=== PATIENT | female | born 1970 | race Caucasian/White ===

== ENCOUNTER → 2020-03-14 08:02 | Outpatient (CLI) | payer BC, SELFPAY ==
--- NOTE | 2020-03-14 | DI.CT.S_ITS ---
PROCEDURE: CT ABDOMEN PELVIS W CON INDICATIONS: Left lower quadrant abdominal pain TECHNIQUE: After the administration of oral and intravenous contrast, 5 mm thick sections acquired from the diaphragms to the symphysis. 5 mm thick coronal and sagittal reformats were performed. For radiation dose reduction, the following was used: automated exposure control, adjustment of mA and/or kV according to patient size. COMPARISON: None. FINDINGS: Image quality: Excellent. ABDOMEN: Lung bases: Lung bases are clear. Heart size is normal. Solid organs: Liver is normal in size and enhancement. Gallbladder appears normal. Biliary system is non-dilated. Pancreas enhances normally. Spleen is normal in size and enhancement. No adrenal nodules. Kidneys are normal in size and enhancement, without hydronephrosis. Peritoneum and bowel: Stomach, small bowel, and colon loops are normal in caliber and wall thickness. No free fluid or air. Nodes and vessels: No retroperitoneal or mesenteric adenopathy. Aorta and inferior vena cava are normal in caliber. Miscellaneous: No ventral hernias. PELVIS: Genitourinary: Bladder wall thickness is normal. Miscellaneous: No inguinal hernias or adenopathy. There is toms-py-ndaozgag diverticulosis at the left lower quadrant, but no sign of acute diverticulitis. Bones: No suspicious bony lesions. No vertebral body compression fractures. IMPRESSION: [id number] left lower quadrant diverticulosis, but no acute diverticulitis. Dictated by: Baltazar Jo M.D. on 03/14/2020 at 10:07 Approved by: Baltazar Jo M.D. on 03/14/2020 at 11:02
--- NOTE | 2020-03-14 | DI.US.S_ITS ---
PROCEDURE: US PELVIC COMPLETE INDICATIONS: Left lower quadrant abdominal pain TECHNIQUE: Real-time scanning was performed of the pelvic organs, with image documentation. Additional endovaginal scanning was necessary due to incomplete visualization of the adnexal and endometrial structures by transabdominal scanning. COMPARISON: [facility], CT, CT ABDOMEN PELVIS W CON, 03/14/2020, 9:44. FINDINGS: Transabdominal scanning: Limited scanning through the kidneys shows no hydronephrosis. No pathologic free abdominal or pelvic fluid. Endovaginal scanning: Uterus: Removed. Ovaries: Neither ovary is seen. There is a potential left adnexal mass seen by the technologist, although no measurements were obtained. On the accompanying CT examination, no adnexal masses are seen, yet only normal appearing bowel can be seen. IMPRESSION: No definite pelvic ultrasound abnormality is seen. Status post cholecystectomy and presumed bilateral oophorectomy, without ovarian tissue identified. Dictated by: Roberto Herrera M.D. on 03/15/2020 at 9:44 Approved by: Roberto Herrera M.D. on 03/15/2020 at 9:46
== END ==
PROVIDERS: PCP Nurse Practitioner Family; Referring Provider Nurse Practitioner Family; Visit Provider Nurse Practitioner Family
DX: K57.90 Diverticulosis of intestine, part unspecified, without perforation or abscess without bleeding (principal); Z90.49 Acquired absence of other specified parts of digestive tract
CPT/HCPCS: 74177; 76856; Q9967

== ENCOUNTER → 2020-05-25 11:03 | Outpatient (CLI) | payer BC, SELFPAY ==
--- NOTE | 2020-05-25 | DI.MG.S_ITS ---
BILATERAL DIGITAL SCREENING MAMMOGRAM 3D/2D WITH CAD: 05/25/2020 CLINICAL: Baseline exam. Routine screening. No prior exams were available for comparison. The tissue of both breasts is heterogeneously dense. This may lower the sensitivity of mammography. Current study was also evaluated with a Computer Aided Detection (CAD) system. There is a 1.8 cm oval equal density asymmetry with an obscured and circumscribed margin in the right breast middle depth superior region seen on the mediolateral oblique view only. There also is a 7 mm round low density asymmetry in the right breast posterior depth superior region seen on the mediolateral oblique view only. Finding is seen only on tomography. No other significant masses, calcifications, or other findings are seen in either breast. IMPRESSION: INCOMPLETE: NEEDS ADDITIONAL IMAGING EVALUATION The 1.8 cm oval equal density asymmetry in the right breast middle depth superior region seen on the mediolateral oblique view only is indeterminate. Additional views with possible ultrasound are recommended. The 7 mm round low density asymmetry in the right breast posterior depth superior region seen on the mediolateral oblique view only is indeterminate. Additional views with possible ultrasound are recommended. This exam was interpreted at Station ID: [id number]. NOTE: For mammograms, a report in lay terms will be sent to the patient. Approximately 15% of breast malignancies will not be visualized mammographically. In the management of a palpable breast mass, a negative mammogram must not discourage biopsy of a clinically suspicious lesion. Electronically Signed By: Shanae alonzo/ortiz:05/25/2020 11:44:54 copy to: Kayla Gillespie MD, ph: [phone], fax: [phone] letter sent: Additional Imaging Needed ACR BI-RADS Category 0: Incomplete 3340F
== END ==
PROVIDERS: PCP Nurse Practitioner Family; Referring Provider Nurse Practitioner Family; Visit Provider Nurse Practitioner Family
DX: Z12.31 Encounter for screening mammogram for malignant neoplasm of breast (principal)
CPT/HCPCS: 77063; 77067

== ENCOUNTER → 2020-06-15 12:50 | Outpatient (CLI) | payer BC, SELFPAY ==
--- NOTE | 2020-06-15 | DI.US.S_ITS ---
LIMITED ULTRASOUND OF RIGHT BREAST AND AXILLA: 06/15/2020 CLINICAL: Patient returns today to evaluate focal asymmetries in the right breast. Comparison is made to exams dated: 06/15/2020 mammogram and 05/25/2020 mammogram - [facility]. Color flow ultrasound of the right breast axilla was performed. Onofre scale images of the real-time examination were reviewed. There is a 1.7 cm x 1.4 cm x 1.2 cm oval mass with a circumscribed margin in the right breast at 11 o'clock middle depth 4 cm from the nipple. This oval mass is hypoechoic. This correlates with mammography findings. Color flow imaging demonstrates that there is no increase in vascularity. There also is a benign 0.8 cm x 0.7 cm x 0.6 cm oval simple cyst with a smooth internal wall in the right breast at 10 o'clock posterior depth 8 cm from the nipple. This oval simple cyst is anechoic with posterior acoustic enhancement. This correlates with mammography findings. Adjacent to this cyst, there is an additional smaller cyst. No significant abnormalities were seen sonographically in the right axilla. IMPRESSION: SUSPICIOUS OF MALIGNANCY The 1.7 cm x 1.4 cm x 1.2 cm oval mass in the right breast at 11 o'clock middle depth has a differential diagnosis of a fibroadenoma and is at a low suspicion for malignancy. An ultrasound guided biopsy is recommended. The findings and recommendations were discussed with the patient by telephone at the time of the exam. The 0.8 cm x 0.7 cm x 0.6 cm oval simple cyst in the right breast at 10 o'clock posterior depth is benign. This exam was interpreted at Station ID: [id number]. Electronically Signed By: Hector hayden/ortiz:06/15/2020 15:11:42 copy to: Kayla Gillespie MD, ph: [phone], fax: [phone] letter sent: Biopsy Required Ultrasound BI-RADS: 4a Low suspicion for malignancy
--- NOTE | 2020-06-15 | DI.MG.S_ITS ---
UNILATERAL RIGHT DIGITAL DIAGNOSTIC MAMMOGRAM 3D/2D WITH ADDITIONAL VIEWS: 06/15/2020 CLINICAL: Additional evaluation requested from prior study. Comparison is made to exam dated: 05/25/2020 [facility]. The tissue of right breast is heterogeneously dense. This may lower the sensitivity of mammography. There is a 1.8 cm oval equal density mass with an obscured and circumscribed margin in the right breast at 11 o'clock anterior depth. This is seen in additional views. There also is a 7 mm oval focal asymmetry with an obscured margin in the right breast at 10 o'clock posterior depth. No other significant masses or calcifications are seen in the breast. IMPRESSION: INCOMPLETE: NEEDS ADDITIONAL IMAGING EVALUATION The 1.8 cm oval equal density mass in the right breast at 11 o'clock anterior depth is indeterminate. An ultrasound is recommended. The 7 mm oval focal asymmetry in the right breast at 10 o'clock posterior depth is indeterminate. An ultrasound is recommended. This exam was interpreted at Station ID: [id number]. NOTE: For mammograms, a report in lay terms will be sent to the patient. Approximately 15% of breast malignancies will not be visualized mammographically. In the management of a palpable breast mass, a negative mammogram must not discourage biopsy of a clinically suspicious lesion. SUMMARY: Targeted ultrasound is recommended for further evaluation and will be scheduled immediately following this exam. Electronically Signed By: Hector hayden/ortiz:06/15/2020 15:08:16 copy to: Kayla Gillespie MD, ph: [phone], fax: [phone] ACR BI-RADS Category 0: Incomplete 3340F
== END ==
PROVIDERS: PCP Nurse Practitioner Family; Referring Provider Nurse Practitioner Family; Visit Provider Nurse Practitioner Family
DX: R92.8 Other abnormal and inconclusive findings on diagnostic imaging of breast (principal); N63.11 Unspecified lump in the right breast, upper outer quadrant; N60.01 Solitary cyst of right breast
CPT/HCPCS: 76642; 77065; G0279

== ENCOUNTER → 2020-06-30 09:42 | Outpatient (CLI) | payer BC, SELFPAY ==
--- NOTE | 2020-06-30 | DI.MG.S_ITS ---
UNILATERAL RIGHT DIGITAL DIAGNOSTIC MAMMOGRAM POST-NEEDLE BIOPSY: 06/30/2020 CLINICAL: Abnormal mammogram. Comparison is made to exams dated: 06/15/2020 mammogram and 05/25/2020 mammogram - [facility]. The tissue of right breast is heterogeneously dense. This may lower the sensitivity of mammography. There is a mass in the right breast seen on the craniocaudal view only. There also is a marker clip in the appropriate position in the right breast at 11 o'clock anterior depth. This marker clip placement is at the biopsy site. This correlates with ultrasound findings. No other significant masses or calcifications are seen in the breast. IMPRESSION: INCOMPLETE: NEEDS ADDITIONAL IMAGING EVALUATION There was a successful marker clip placement in the right breast at 11 o'clock anterior depth. This exam was interpreted at Station ID: [id number]. NOTE: For mammograms, a report in lay terms will be sent to the patient. Approximately 15% of breast malignancies will not be visualized mammographically. In the management of a palpable breast mass, a negative mammogram must not discourage biopsy of a clinically suspicious lesion. Electronically Signed By: Kermit Schwartz acr/:06/30/2020 11:16:03 copy to: Kayla Gillespie MD, ph: [phone], fax: [phone] ACR BI-RADS Category 0: Incomplete 3340F
--- NOTE | 2020-06-30 | DI.US.S_ITS ---
PROCEDURE: US BX BREAST PERC W VAC DEVICE COMPARISON: None. INDICATIONS: Other abnormal and inconclusive findings on diagnostic imagi FINDINGS: IMPRESSION: Dictated by: Kermit Schwartz M.D. on 06/30/2020 at 12:05 Approved by: Kermit Schwartz M.D. on 06/30/2020 at 12:07
--- NOTE | 2020-06-30 11:58 | DI.US.S_ITS ---
Date: 06/30/2020 11:58 At the request of: ESME SHEIKH Procedure: US bx breast perc w vac device ULTRASOUND GUIDED BIOPSY RIGHT BREAST USING VACUUM DEVICE WITH MARKING DEVICE INSERTED AND POST MAMMOGRAPHIC IMAGIN06/30/2020 CLINICAL: Post right breast ultrasound biopsy, clip placement imaging. PATIENT CONSENT: Risks (minor bleeding, infection, vasovagal reaction and repeat procedure), benefits and alternatives were explained to the patient and written informed consent was obtained. No prior exams were available for correlation. An ultrasound guided biopsy using real-time ultrasound was performed for the irregular shaped solid mass located in the right breast at 11 o'clock posterior depth. The skin was prepped in the usual manner. The abnormality was approached from the lateral aspect. A 9 gauge biopsy needle was placed adjacent to the abnormality under ultrasound guidance. Once the needle was documented to be in the correct location, six specimens were obtained using the Mammotome biopsy system. A clip was inserted into the biopsy cavity. Post procedure mammographic imaging was obtained. The specimens were sent to the laboratory for pathological analysis. IMPRESSION: ULTRASOUND GUIDED BIOPSY BENIGN Ultrasound guided biopsy of the solid mass in the right breast at 11 o'clock posterior depth was successful. 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 Pathology results are concordant with imaging findings. Return to annual mammogram screening schedule is recommended. This exam was interpreted at Station ID: [id number]. Kermit Hanna M.D. acr,aty/:07/07/2020 07:21:07 copy to: Kayla Gillespie MD, ph: [phone], fax: [phone]
== END ==
PROVIDERS: PCP Nurse Practitioner Family; Referring Provider Nurse Practitioner Family; Visit Provider Nurse Practitioner Family
DX: D24.1 Benign neoplasm of right breast (principal)
CPT/HCPCS: 19083; 77065

== ENCOUNTER → 2021-07-03 10:48 | Outpatient (CLI) | payer BC, SELFPAY ==
--- NOTE | 2021-07-03 | DI.MG.S_ITS ---
BILATERAL DIGITAL SCREENING MAMMOGRAM 3D/2D WITH CAD: 07/03/2021 CLINICAL: Routine screening. Comparison is made to exams dated: 06/30/2020 ultrasound biopsy, 06/30/2020 mammogram, 06/15/2020 ultrasound, 06/15/2020 mammogram, and 05/25/2020 mammogram - [facility]. The tissue of both breasts is heterogeneously dense. This may lower the sensitivity of mammography. Current study was also evaluated with a Computer Aided Detection (CAD) system. There is a biopsy clip in the right breast. No significant masses, calcifications, or other findings are seen in either breast. There has been no significant interval change. IMPRESSION: NEGATIVE There is no mammographic evidence of malignancy. A 1 year screening mammogram is recommended. This exam was interpreted at Station ID: [id number]. NOTE: For mammograms, a report in lay terms will be sent to the patient. Approximately 15% of breast malignancies will not be visualized mammographically. In the management of a palpable breast mass, a negative mammogram must not discourage biopsy of a clinically suspicious lesion. Electronically Signed By: Shanae alonzo/ortiz:07/03/2021 12:10:29 copy to: Kayla Gillespie MD, ph: [phone], fax: [phone] letter sent: Normal Exam ACR BI-RADS Category 1: Negative 3341F
== END ==
PROVIDERS: PCP Nurse Practitioner Family; Referring Provider Nurse Practitioner Family; Visit Provider Nurse Practitioner Family
DX: Z12.31 Encounter for screening mammogram for malignant neoplasm of breast (principal)
CPT/HCPCS: 77063; 77067

== ENCOUNTER → 2023-09-03 11:05 | Outpatient (CLI) | payer BC, SELFPAY ==
--- NOTE | 2023-09-03 11:07 | DI.MG.S_ITS ---
BILATERAL DIGITAL SCREENING MAMMOGRAM 3D/2D WITH CAD: 09/03/2023 CLINICAL: Routine screening. Comparison is made to exams dated: 07/03/2021 mammogram, 05/25/2020 mammogram, and 06/30/2020 mammogram - [facility]. Both breasts are heterogeneously dense, which may obscure small masses (category c / 51-75% glandular tissue). Current study was also evaluated with a Computer Aided Detection (CAD) system. There is a biopsy clip in the right breast. No significant masses, calcifications, or other findings are seen in either breast. There has been no significant interval change. IMPRESSION: NEGATIVE There is no mammographic evidence of malignancy. A 1 year screening mammogram is recommended. Based on the Tyrer Cuzick model (a risk assessment model) the patient's lifetime risk is 15.4% and her 10 year risk is 4.5%. According to the ACR, ACS, and NCCN guidelines, an annual breast MRI exam along with mammogram is recommended if the patient's lifetime risk is 20% or greater. This exam was interpreted at Station ID: [id number]. NOTE: For mammograms, a report in lay terms will be sent to the patient. Approximately 15% of breast malignancies will not be visualized mammographically. In the management of a palpable breast mass, a negative mammogram must not discourage biopsy of a clinically suspicious lesion. Electronically Signed By: Deven mcintyre/ortiz:09/03/2023 16:04:23 copy to: Kayla Gillespie MD, ph: [phone], fax: [phone] letter sent: Normal Exam ACR BI-RADS Category 1: Negative 3341F
== END ==
LOC: MAMMO 11:05
PROVIDERS: PCP Family Medicine; Referring Provider Family Medicine; Visit Provider Family Medicine
DX: Z12.31 Encounter for screening mammogram for malignant neoplasm of breast (principal); R92.333 Mammographic heterogeneous density, bilateral breasts
CPT/HCPCS: 77063; 77067

== ENCOUNTER → 2023-09-03 11:07 | Outpatient (CLI) | payer BC, SELFPAY ==
[2023-09-03 12:24] LABS: Add Manual Diff / Slide Review NO; Basophils Absolute Auto 100 /uL (0-100); Basophils Percent Auto 1.3 % (0-2); Eosinophils Absolute Auto 200 /uL (0-450); Hematocrit 40.2 % (36-46); Hemoglobin 13.8 g/dL (12.0-16.0); Lymphocytes Absolute Auto 1500 /uL (1100-4500); Lymphocytes Percent Auto 25.3 % (25-40); Mean Corpuscular HGB Conc 34.4 % (30-36); Mean Corpuscular Hemoglobin 31.5 PG (26-34); Mean Corpuscular Volume 91.4 fL (80-100); Monocytes Absolute Auto 600 /uL (0-900); Monocytes Percent Auto 10.3 % (3-14); Neutrophils Absolute Auto 3600 /uL (1500-7000); Neutrophils Percent Auto 60.1 % (50-75); Platelet Count 280 X10^3/uL (150-400); Red Cell Distribution Width 13.4 % (11.6-14.8); White Blood Cell Count 5.9 X10^3/uL (4.5-11.0)
[2023-09-03 12:43] LABS: Alanine Aminotransferase 40 IU/L (<35); Albumin 4.7 g/dL (3.5-5.0); Albumin Globulin Ratio 1.7 (1.0-2.8); Alkaline Phosphatase 93 U/L (38-126); Aspartate Aminotransferase 35 IU/L (14-36); BUN Creatinine Ratio 19.7 (6-22); Bilirubin Total 0.8 mg/dL (0.2-1.3); Blood Urea Nitrogen 12 mg/dL (7-17); Calcium 9.7 mg/dL (8.4-10.2); Carbon Dioxide 22 mmol/L (22-32); Chloride 108 mmol/L (98-107); Cholesterol 172 mg/dL (140-199); Estimated Glomerular Filt Rate > 60 mL/min (>60); Globulin 2.7 g/dL (1.7-4.1); Glucose 92 mg/dL (70-100); HDL Cholesterol 70 mg/dL (40-60); HEMOLYSIS < 15 (0-50); LDL Cholesterol Calculated 85 mg/dL (<100); Potassium 3.8 mmol/L (3.4-5.1); Sodium 138 mmol/L (137-145); Total Protein 7.4 g/dL (6.3-8.2); Triglycerides 86 mg/dL (35-150)
[2023-09-03 13:08] LABS: TSH w/ Reflex to FT4 1.96 uIU/mL (0.47-4.68)
== END ==
PROVIDERS: PCP Family Medicine; Referring Provider Family Medicine; Visit Provider Family Medicine
DX: Z13.6 Encounter for screening for cardiovascular disorders (principal); E03.9 Hypothyroidism, unspecified
CPT/HCPCS: 36415; 80053; 80061; 84443; 85025

== ENCOUNTER → 2024-01-13 10:04 | Outpatient (CLI) | payer BC, SELFPAY ==
[2024-01-13 11:30] LABS: Alanine Aminotransferase 50 IU/L (<35); Albumin 4.2 g/dL (3.5-5.0); Albumin Globulin Ratio 1.7 (1.0-2.8); Alkaline Phosphatase 105 U/L (38-126); Aspartate Aminotransferase 37 IU/L (14-36); Bilirubin Total 0.5 mg/dL (0.2-1.3); Blood Urea Nitrogen 19 mg/dL (7-17); Calcium 9.7 mg/dL (8.4-10.2); Carbon Dioxide 25 mmol/L (22-32); Chloride 105 mmol/L (98-107); Estimated Glomerular Filt Rate > 60 mL/min (>60); Globulin 2.5 g/dL (1.7-4.1); Glucose 103 mg/dL (70-100); HEMOLYSIS < 15 (0-50); Potassium 4.1 mmol/L (3.4-5.1); Sodium 138 mmol/L (137-145); Total Protein 6.7 g/dL (6.3-8.2)
[2024-01-13 12:01] LABS: TSH w/ Reflex to FT4 2.38 uIU/mL (0.47-4.68)
== END ==
PROVIDERS: PCP Family Medicine; Referring Provider Family Medicine; Visit Provider Family Medicine
DX: R79.89 Other specified abnormal findings of blood chemistry (principal); E03.9 Hypothyroidism, unspecified; R87.811 Vaginal high risk human papillomavirus (HPV) DNA test positive; N95.9 Unspecified menopausal and perimenopausal disorder
CPT/HCPCS: 36415; 80053; 84443

== ENCOUNTER → 2024-02-11 11:44 | Outpatient (CLI) | payer BC, SELFPAY ==
--- NOTE | 2024-02-11 11:45 | DI.US.S_ITS ---
PROCEDURE: US ABDOMEN LIMITED INDICATIONS: ABNORMAL LIVER FUNCTION TESTS TECHNIQUE: Real-time scanning was performed of the abdominal and retroperitoneal organs, with image documentation. COMPARISON: [facility], CT, CT ABDOMEN PELVIS W CON, 03/14/2020, 9:44. FINDINGS: Liver: Liver is normal in size. Multiple hyperechoic lesions in the right hepatic lobe, the largest of which measures 1.1 x 0.8 x 1.2 cm with no significant internal vascularity. Prior CT dated March 14, 2020, demonstrated two hypodense lesions in the right hepatic lobe measuring 0.8 cm (series 2, image 11 and image 16). Gallbladder: No gallstones. No wall thickening. No pericholecystic edema. Negative sonographic Yip's sign. Biliary ducts: Intrahepatic bile ducts are non-dilated. Extrahepatic bile duct caliber measures 6.5 mm. Normal is 6-7 mm or less in diameter, or 10 mm or less post-cholecystectomy. Pancreas: Visualized portions of the pancreas are sonographically normal. Miscellaneous: No free abdominal fluid. IMPRESSION: Multiple hyperechoic lesions in the right hepatic lobe, the largest of which measures 1.1 x 0.8 x 1.2 cm with no significant internal vascularity. Prior CT dated March 14, 2020 demonstrated two hypodense lesions in the right hepatic lobe measuring 0.8 cm. Findings are nonspecific and may reflect hemangiomas. If clinically warranted, a CT or MRI (liver mass protocol) can be performed for further evaluation. Dictated by: Ninoska Feng M.D. on 02/12/2024 at 15:03 Approved by: Ninoska Feng M.D. on 02/12/2024 at 15:06
== END ==
PROVIDERS: PCP Family Medicine; Referring Provider Family Medicine; Visit Provider Family Medicine
DX: R79.89 Other specified abnormal findings of blood chemistry (principal); K76.9 Liver disease, unspecified
CPT/HCPCS: 76705

== ENCOUNTER → 2024-02-24 11:02 | Outpatient (CLI) | payer BC, SELFPAY ==
[2024-02-24 12:33] LABS: Alanine Aminotransferase 27 IU/L (<35); Albumin 4.1 g/dL (3.5-5.0); Albumin Globulin Ratio 1.7 (1.0-2.8); Alkaline Phosphatase 76 U/L (38-126); Aspartate Aminotransferase 24 IU/L (14-36); BUN Creatinine Ratio 21.9 (6-22); Bilirubin Total 0.5 mg/dL (0.2-1.3); Blood Urea Nitrogen 14 mg/dL (7-17); Calcium 9.2 mg/dL (8.4-10.2); Carbon Dioxide 23 mmol/L (22-32); Chloride 108 mmol/L (98-107); Estimated Glomerular Filt Rate > 60 mL/min (>60); Globulin 2.4 g/dL (1.7-4.1); Glucose 82 mg/dL (70-100); HEMOLYSIS < 15 (0-50); Potassium 3.7 mmol/L (3.4-5.1); Sodium 138 mmol/L (137-145); Total Protein 6.5 g/dL (6.3-8.2)
[2024-02-24 13:07] LABS: Ferritin 57 ng/mL (11-264)
[2024-02-25 04:13] LABS: HBsAg Screen Negative (Negative); Hepatitis A Antibody IgM Negative (Negative); Hepatitis B Core Antibody IgM Negative (Negative); Hepatitis C Antibody Non Reactive (Non Reactive)
== END ==
LOC: LAB 11:02
PROVIDERS: PCP Family Medicine; Referring Provider Family Medicine; Visit Provider Family Medicine
DX: R79.89 Other specified abnormal findings of blood chemistry (principal)
CPT/HCPCS: 36415; 80053; 80074; 82728

== ENCOUNTER → 2024-04-20 11:13 | Outpatient (CLI) | payer BC, SELFPAY ==
[2024-04-20 12:29] LABS: TSH w/ Reflex to FT4 2.15 uIU/mL (0.47-4.68)
== END ==
PROVIDERS: PCP Family Medicine; Referring Provider Family Medicine; Visit Provider Family Medicine
DX: E03.9 Hypothyroidism, unspecified (principal)
CPT/HCPCS: 36415; 84443